=== PATIENT | male | born 1985 | race Asian ===

== ENCOUNTER 2021-10-15 14:11 | Emergency (ER) | payer MEDICAID ==
[~2021-10-15] VITALS: Ht 175.3 cm; Wt 81.6 kg
[2021-10-15 14:41] VITALS: BP_SYST 125
[2021-10-15] MEDS ORDERED: LIDOCAINE VISCOUS 2%, 15 ML UDC MM ONE (16:45)
[2021-10-15] MEDS ORDERED: DECADRON 4 MG TABLET PO ONE (16:45)
[2021-10-15] MEDS ORDERED: KETOROLAC TROMETHAMINE 30 MG VIAL IM ONE (16:45)
[2021-10-15 18:17] LABS: BASOPHILS % (AUTO) 0.4 % (0.0-2.0); EOSINOPHILS % (AUTO) 0.1 % (0.0-4.0); HEMATOCRIT 39.9 % (36-54); HEMOGLOBIN 13.9 g/dL (14.0-18.0); LYMPHOCYTES # (AUTO) 0.7 K/uL (1.0-5.5); LYMPHOCYTES % (AUTO) 9.8 % (20.5-51.5); MEAN CORPUSCULAR HEMOGLOBIN 31 pg (27-31); MEAN CORPUSCULAR HGB CONC 35 % (32-36); MEAN CORPUSCULAR VOLUME 88 fL (79.0-98.0); MONOCYTES # (AUTO) 0.2 K/uL (0.0-1.0); MONOCYTES % (AUTO) 2.4 % (1.7-9.3); NEUTROPHILS # (AUTO) 6.4 K/uL (1.8-7.7); NEUTROPHILS % (AUTO) 87.3 % (40.0-70.0); PLATELET COUNT (AUTO) 154 K/uL (130-430); RED BLOOD CELL COUNT(AUTO) 4.54 MIL/uL (4.2-6.2); RED CELL DISTRIBUTION WIDTH 12.8 % (9.0-15.0); WHITE BLOOD COUNT (AUTO) 7.3 K/uL (4.8-10.8)
[2021-10-15 18:25] LABS: CALCIUM 8.7 mg/dL (8.4-11.0); CREATININE 1.2 mg/dL (0.55-1.30); POTASSIUM 3.3 mmol/L (3.5-5.1)
[2021-10-15 18:30] LABS: ALBUMIN 3.5 g/dL (3.4-4.8); C-REACTIVE PROTEIN QUANT 6.2 mg/dL (0-0.5); TOTAL BILIRUBIN 0.6 mg/dL (0.0-1.0)
[2021-10-15 18:56] LABS: ERYTHROCYTE SEDIMENTATION RATE 16 MM/HR (0-15)
[2021-10-15 19:55] LABS: STREPTOCOCCUS A SCREEN (RAPID) NEGATIVE (NEGATIVE)
[2021-10-15] MEDS ORDERED: BENZ5.1G TP (20:26)
[2021-10-15] MEDS ORDERED: IBUP-1969 PO (20:26)
[2021-10-15 20:38] VITALS: BP_SYST 112
== END 2021-10-15 20:38 | disposition home or self-care (01) ==
LOC: SED 14:11
DX: K13.79 Other lesions of oral mucosa (principal); B34.9 Viral infection, unspecified; R50.9 Fever, unspecified; J02.9 Acute pharyngitis, unspecified; R53.1 Weakness; Z79.899 Other long term (current) drug therapy; Z20.822 Contact with and (suspected) exposure to COVID-19
CPT/HCPCS: 99283; 87426; 80053; 85025; 85651; 86140; 86403; 36415; 96372; 87081; 87804 ×2; J8540; J2001; J1885

== ENCOUNTER 2021-10-19 15:49 | Emergency (ER) | payer MEDICAID ==
[~2021-10-19] VITALS: Ht 175.3 cm; Wt 79.4 kg
[~2021-10-19 15:49] MED LIST: BENZ5.1G TP; IBUP-1969 PO
[2021-10-19 15:56] VITALS: BP_SYST 123
[2021-10-19] MEDS ORDERED: ACYC-133 PO (16:14)
[2021-10-19] MEDS ORDERED: NAPR-690 PO (16:14)
[2021-10-19 16:24] VITALS: BP_SYST 123
== END 2021-10-19 16:24 | disposition home or self-care (01) ==
LOC: SED 15:49
DX: B00.2 Herpesviral gingivostomatitis and pharyngotonsillitis (principal); K13.79 Other lesions of oral mucosa; Z79.899 Other long term (current) drug therapy
CPT/HCPCS: 99283